=== PATIENT | female | born 1950 | race Caucasian/White ===

== ENCOUNTER 2016-03-08 07:05 | Outpatient (CLI) | payer OTHER | END 2016-03-08 07:06 | LOC: LAB 07:05 | PROVIDERS: ATTEND Family Medicine | DX: R73.9 Hyperglycemia, unspecified (principal) | CPT/HCPCS: 36415; 82947; 83036 ==

== ENCOUNTER 2016-06-16 13:13 | Outpatient (CLI) | payer OTHER | END 2016-06-16 13:14 | LOC: LAB 13:13 | PROVIDERS: ATTEND Family Medicine | DX: R73.9 Hyperglycemia, unspecified (principal) | CPT/HCPCS: 36415; 83036 ==

== ENCOUNTER 2016-12-15 07:23 | Outpatient (CLI) | payer OTHER ==
[2016-12-15 08:31] LABS: eGFR (African) > 60; eGFR (Non-African) > 60
== END 2016-12-15 07:24 ==
LOC: LAB 07:23
PROVIDERS: ATTEND Family Medicine
DX: R73.9 Hyperglycemia, unspecified (principal); E78.5 Hyperlipidemia, unspecified
CPT/HCPCS: 36415; 80053; 80061; 83036

== ENCOUNTER 2017-04-19 09:59 | Outpatient (CLI) | payer OTHER | END 2017-04-19 10:10 | LOC: RAD 09:59 | PROVIDERS: ATTEND Family Medicine | DX: M81.0 Age-related osteoporosis without current pathological fracture (principal) | CPT/HCPCS: 77080 ==

== ENCOUNTER 2018-06-23 19:22 | Emergency (ER) | payer MEDICARE ==
[2018-06-23] MEDS ORDERED: ASPIRIN 81 MG CHEW TAB PO ONE (19:28)
--- NOTE | 2018-06-23 19:28 | ED Physician Documentation ---
Chest Pain - HISTORIAN Historian: patient - HPI Stated Complaint: chest pain Chief Complaint: Chest Pain Onset: hours (2) Timing: sudden onset Duration: constant Last known Well Date: 06/23/18 Last Known Well Time: 17:00 Context: rest Severity: moderate Quality: pressure, tightness, indigestion, aching Chest Pain Radiation: jaw (both sides ) Chest Pain Signs/Symptoms: diaphoresis. denies: nausea Worsened By: nothing Relieved By: nothing Further Comments: yes (She states the pain started so she tried 3 tums with no relief and with the radiation to the jaw (bilaterally) she wanted to have an eval. No injury. No cough or fever. Chest pain that is tight and dull and pressure mid chest radiaition to bilateral jaws) - ROS CONST: none - PAST HX IA risk factors: no pertinent history TAD/AAA risk factors: none Neuro deficit: none GI disease: none Allergies/Adverse Reactions: Allergies Allergy/AdvReac Type Severity Reaction Status Date / Time cephalexin monohydrate AdvReac Unknown Rash Verified 06/23/18 19:47 [From Keflex] doxycycline AdvReac Unknown Rash Verified 06/23/18 19:47 morphine AdvReac Unknown Rash Verified 06/23/18 19:47 - SOCIAL HX Smoking History: non-smoker Alcohol Use: none Drug Use: none - FAMILY HX Family HX: none - REVIEWED ASSESSMENTS Nursing Assessment Reviewed: Yes Vitals Reviewed: Yes Progress - Progress Progress: 2006: states her pain is resolved - however thinks it was almost eased before the GI cocktail and now no pain DG ED Results Lab/Radiology - Radiology Radiology Impressions: Examination: Portable chest History: Evaluate lungs. Chest pain Comparison exam: None provided. Findings: Single view of the chest demonstrates a normal cardiac and mediastinal silhouette. Lung mix without focal infiltrate. No blunting of the costophrenic margins. Right midlung granuloma. Osseous structures are appropriate for age. Impression: No acute pulmonary process. Electronically signed on June 23, 2018 8:11:26 PM CDT by: Bright Gill Chest Pain Physical Exam - EXAM General Appearance: no acute distress, alert EENT: eye inspection normal, no signs of dehydration Neck: nml inspection Respiratory: no resp. distress, chest non-tender, nml breath sounds CVS: reg. rate & rhythm, no murmur Abdomen: soft, no distension Skin: warm/dry, normal color Extremities: non-tender, no edema Neuro: oriented X3 Discharge Clincal Impression: Chest pain Qualifiers: Chest pain type: other chest pain Qualified Code(s): R07.89 - Other chest pain Referrals: Lalitha Carrillo MD [Primary Care Provider] - 2 Days Comments: 1. Continue home meds 2. See PCP in 2-4 days 3. Return to ER for any increasing concerns Condition: Stable Disposition: 01 HOME, SELF-CARE Decision to Admit: NO Date of Decison to Admit: 06/23/18 Decision Time: 20:39
[2018-06-23] MEDS ORDERED: MAG HYDROX/ALUMINUM HYD/SIMETH 30 ML, Lidocaine 2% Viscous 15 ML PO ONE ×2 (19:38)
[2018-06-23 19:54] LABS: BASOPHILS % 0.6 % (0.0-1.5); EOSINOPHILS % 2.9 % (0.0-6.8); MEAN CORPUSCULAR HEMOGLOBIN 31.8 pg (28.0-34.0); MONOCYTES % 6.3 % (0.0-11.0); NEUTROPHILS # 4.8 # k/uL (1.4-7.7)
[2018-06-23 20:14] LABS: eGFR (Non-African) > 60
[2018-06-23 20:27] VITALS: BP 156/82
--- NOTE | 2018-06-23 22:12 | Diagnostic Imaging Report ---
ADRIANA MADRIGAL [facility] [id number] [facility] [address] [place], [place]. [address] Report Submission Date: June 23, 2018 8:11:26 PM CDT Patient Study Name: DEBBIE GARCIA Date: June 23, 2018 7:33:37 PM CDT Modality Type: DX Gender: F Description: CHEST 1VIEW : 54 Institution: [facility] Physician: ADRIANA MADRIGAL Examination: Portable chest History: Evaluate lungs. Chest pain Comparison exam: None provided. Findings: Single view of the chest demonstrates a normal cardiac and mediastinal silhouette. Lung mix without focal infiltrate. No blunting of the costophrenic margins. Right midlung granuloma. Osseous structures are appropriate for age. Impression: No acute pulmonary process. Electronically signed on June 23, 2018 8:11:26 PM CDT by: Bright DURHAM
== END 2018-06-23 20:39 | disposition home or self-care (01) ==
LOC: ED 19:22
DX: R07.89 Other chest pain (principal)
CPT/HCPCS: 36415; 71045; 80053; 84484; 85025; 85379; 93005; 99283; 99284; A9270; S1016